=== PATIENT | female | born 1990 | race Caucasian/White ===

== ENCOUNTER → 2016-07-29 | Outpatient (CLI) | payer OTHER ==
[~2016-07-29] VITALS: Ht 162.6 cm; Wt 116.3 kg
[~2016-07-29] MED LIST: D5LR 1,000 ML IV SCH; DimenhyDRINATE 50 MG in LR 1,000 ML IV SCH; FERR324T4 PO; ONDANSETRON 4mg/2ml INJECTION IV ONE; ONDANSETRON 4mg/2ml INJECTION IV PRN; prenatal vit
[2016-07-29 11:30] VITALS: BP 126/68; PULSE 91; RESP 20; TEMP 98.8; O2SAT 97
[2016-07-29 11:42] VITALS: Ht 162.6 cm; Wt 116.3 kg
--- NOTE | 2016-07-29 11:43 | NUR ---
nausea Patient is dry-heaving upon admission. Zofran 4mg iv push given over 2minutes.
[2016-07-29 11:52] LABS: EOSINOPHILS % (AUTO) 0.2 % (0-4); HCT - HEMATOCRIT 32.5 % (36-46); HGB - HEMOGLOBIN 10.3 GM/DL (12-16); IMMATURE GRANULOCYTE # (AUTO) 0.03 T/MM3 (0.00-0.03); IMMATURE GRANULOCYTE % (AUTO) 0.3 % (0.0-0.5); LYMPHOCYTES # (AUTO) 1.4 T/MM3 (1-4.8); MEAN CORPUSCULAR HGB 24.4 UUG (26-34); MEAN CORPUSCULAR HGB CONC(MCHC 31.7 GM/DL (31-37); MEAN PLATELET VOLUME 9.7 UM3 (9.4-12.4); MONOCYTES # (AUTO) 0.3 T/MM3 (0-0.8); MONOCYTES % (AUTO) 2.7 % (0-9.0); NEUTROPHILS #(AUTO)-ABSOLUTE 7.8 T/MM3 (1.8-7.7); NEUTROPHILS % (AUTO) 81.8 % (33-66); RED BLOOD COUNT 4.22 M/MM3 (4.00-5.20); WBC - WHITE BLOOD COUNT 9.5 T/MM3 (4.5-11.0)
[2016-07-29 11:56] LABS: ALBUMIN 3.1 G/DL (3.5-5.0); ALKALINE PHOSPHATASE 86 U/L (38-126); ALT (SGPT) 43 U/L (9-52); ANION GAP 9 MEQ/L (5-15); AST (SGOT) 32 U/L (14-36); BUN/CREATININE RATIO 16 RATIO (6-26); CALCIUM 8.2 MG/DL (8.4-10.2); CHLORIDE 107 MEQ/L (98-107); CO2 - CARBON DIOXIDE 23 MEQ/L (22-30); CREATININE 0.5 MG/DL (0.7-1.2); GLOMERULAR FILTRATION RATE 148; GLUCOSE 91 MG/DL (65-110); POTASSIUM 3.7 MEQ/L (3.6-5); SODIUM 139 MEQ/L (134-144); TOTAL PROTEIN 6.2 G/DL (6.3-8.2)
--- NOTE | 2016-07-29 13:00 | NUR ---
STATUS PATIENT DENIES ANY NAUSEA SINCE ZOFRAN GIVEN ON ADMISSION. SHE REPORTS HAVING AN APPETITE AND ORDERED LUNCH. ATE 100% AND DRANK [employer] SPOR[employer] DRINK.
--- NOTE | 2016-07-29 14:35 | NUR ---
REST PATIENT SLEEPING SINCE EATING LUNCH. TOLERATING IV FLUIDS WELL. WILL CALL DR. JOLLY WITH AN UPDATE WHEN FLUIDS IN.
--- NOTE | 2016-07-29 14:49 | NUR ---
notification Dr. Manning notified that pt states she feels much better. Denies nausea. Lab results reported. Order received to d/c to home.
== END ==
LOC: INF.THER 10:23
PROVIDERS: ATTEND Obstetrics & Gynecology
DX: O21.1 Hyperemesis gravidarum with metabolic disturbance (principal)
CPT/HCPCS: 36415; 80053; 85025; 96361; 96365; 96375; J1240; J2405; J7120; J7121

== ENCOUNTER 2016-10-07 05:37 | Inpatient (IN) ==
[2016-10-07] MEDS ORDERED: CEFAZOLIN PREMIX (MC ONLY) 2 GM/50 ML BAG IV ONE (06:09)
[2016-10-07] MEDS ORDERED: NOZIN NASAL SWAB NAS ONE (06:09)
[2016-10-07] MEDS ORDERED: CEFAZOLIN 1 G in NS 100 ML IV ONE (06:09)
[2016-10-07] MEDS ORDERED: FAMOTIDINE PREMIX 20 MG/50 ML BAG IV ONE (06:09)
[2016-10-07] MEDS ORDERED: CITRIC ACID/SODIUM CITRATE 30ml PO ONE (06:09)
[2016-10-07] MEDS ORDERED: LR 1,000 ML IV SCH (06:15)
--- NOTE | 2016-10-07 06:52 | Anesthesia Preoperative Report ---
Anesthesia Epidural/Spinal Rec - Date and Time Date: 10/07/16 Preoperative Diagnosis: Previous Procedure: Plan: Spinal - Vital Signs NPO since: Midnight /Para: G: P: - Medictaions & Allergies Inpatient Medications: Current Medications Citric Acid/Sodium Citrate (Oracit) 30 ml PO PREOP ONE Stop: 10/07/16 06:10 Cefazolin Sodium/Dextrose (Kefzol Premix (Mc Only)) 2 gm in 50 mls @ 100 mls/ hr IV PREOP ONE Stop: 10/07/16 06:38 Famotidine/Sodium Chloride (Pepcid Premix) 20 mg in 50 mls @ 100 mls/hr IV PREOP ONE Stop: 10/07/16 06:38 Last Admin: 10/07/16 06:30 Dose: 100 mls/hr Cefazolin Sodium 1 g/ Sodium (Chloride) 100 mls @ 200 mls/hr IV PREOP ONE Stop: 10/07/16 06:38 Lactated Ringer's (Lactated Ringers) 1,000 mls @ 0 mls/hr IV .Q0M LEIF PRN Reason: As Directed Isopropyl Alcohol (Nozin Nasal Swab) 3 each TAMELA PREOP ONE Stop: 10/07/16 06:10 Isopropyl Alcohol (Nozin Nasal Swab) 1 each TAMELA 0600,1400,2200 [facility] Allergies/Adverse Reactions: Allergies Allergy/AdvReac Type Severity Reaction Status Date / Time Sulfa (Sulfonamide Allergy Intermediate HIVES Verified 07/29/16 11:21 Antibiotics) - Home Medications Home Medications: Home Medications Medication Instructions Recorded Confirmed Type Ferrous Sulfate 1 tab PO WB #0 tab 07/29/16 10/06/16 History Vits #90/Iron Fum/FA 1 each PO BID 10/06/16 10/06/16 History [ Formula Tablet] - Medical History Respiratory: Reports: Other (Recent Cough) - Surgical History Reproductive Surgery/Treatment: Reports: Section Anesthesia Reactions: None Hx Family Anesthesia Reaction: No History of Motion Sickness: No - Social History Smoking Status: Former smoker Second Hand Exposure: No Time spent discussing smoking cessation with patient: 3 to 10 minutes Substance Use Type: does not use Alcohol Intake Frequency: does not drink Hx Chewing Tobacco Use: No - Pertinent Findings Lab Data: CBC and BMP 10/07/16 06:34 EKG Rhythm: Normal Sinus Rhythm - Physical Exam Respiratory Exam: lungs clear Cardiovascular Exam: regular rate and rhythm - Airway Assessment Mallampati Score: II TMD: 2 Fingerbreadths Neck Extension: good Overall Assessment: may be difficult intubation - ASA ASA Score: 2 - Discussion Discussion: Discussed risks/options/alternatives of anesthesia and questions answered. Patient consents. Nursing pain assessment noted. Anesthesia Discussion: spouse Attestation Statement: Prior to the delivery of any anesthetic medication, I examined the patient, developed the plan, obtained the patient's consent and discussed the risk and benefits of the procedure with the patient/guardian.
[2016-10-07] MEDS ORDERED: SALINE FLUSH 10ml SYRINGE ONE ×2 (06:59→08:06)
[2016-10-07] MEDS ORDERED: FentaNYL 100 MCG/2 ML INJECTION ONE (06:59)
[2016-10-07] MEDS ORDERED: PHENYLEPHRINE INJ 10 MG/ML VIAL ONE (06:59)
[2016-10-07] MEDS ORDERED: MORPHINE SULFATE PF 5mg/10ml INJ (Duramorph) ONE (06:59)
[2016-10-07] MEDS ORDERED: EPHEDRINE 50mg/ml INJECTION ONE (07:31)
[2016-10-07] MEDS ORDERED: GLYCOPYRROLATE 0.4 MG/2 ML INJECTION ONE (07:34)
[2016-10-07] MEDS ORDERED: NALOXONE 2 MG/2 ML INJECTION PFS IVP PRN (08:46)
[2016-10-07] MEDS ORDERED: DiphenhydrAMINE 50 MG/ML INJECTION IVP PRN (08:46)
[2016-10-07] MEDS ORDERED: METOCLOPRAMIDE 10mg/2ml INJECTION IVP PRN (08:46)
[2016-10-07] MEDS ORDERED: NALBUPHINE 10 MG/ML INJECTION IVP PRN (08:46)
[2016-10-07] MEDS ORDERED: ONDANSETRON 4 MG/2 ML INJECTION IVP PRN (08:46)
[2016-10-07] MEDS ORDERED: PRENATAL VITAMIN TABLET PO SCH (09:00)
[2016-10-07] MEDS ORDERED: DOCUSATE CALCIUM 240 MG CAPSULE PO SCH (09:29)
[2016-10-07] MEDS ORDERED: SIMETHICONE 80 MG CHEWABLE TABLET PO PRN ×2 (09:29→11:18)
[2016-10-07] MEDS ORDERED: SALINE FLUSH 10ml SYRINGE IVF PRN (09:29)
[2016-10-07] MEDS ORDERED: HYDROCORTISONE 2.5% CREAM 30gm RECTALLY PRN ×2 (09:29→11:18)
[2016-10-07] MEDS ORDERED: ACETAMINOPHEN 500 MG TABLET PO PRN ×2 (09:29→11:18)
[2016-10-07] MEDS ORDERED: DiphenhydrAMINE 25 MG CAPSULE PO PRN ×2 (09:29→11:18)
[2016-10-07] MEDS ORDERED: D5LR 1,000 ML IV SCH (09:29)
[2016-10-07] MEDS: HYDROCODONE/APAP 5mg/325mg TABLET PO PRN ×3 (10:28→19:53)
[2016-10-07] MEDS ORDERED: OXYTOCIN DRIP 30 UNIT/500 ML ML IV SCH (11:30)
[2016-10-07] MEDS: IBUPROFEN 800 MG TABLET PO PRN ×2 (12:02→19:53)
[2016-10-07] MEDS: SIMETHICONE 80 MG CHEWABLE TABLET PO SCH ×5 (12:03→22:28)
--- NOTE | 2016-10-07 14:41 | Operative Note ---
DATE OF OPERATION 10/07/2016 PREOPERATIVE DIAGNOSES 1. Term , previous x 2. 2. Undesired fertility. POSTOPERATIVE DIAGNOSIS 1. Term , previous x 2, delivered. 2. Undesired fertility. PROCEDURE Repeat low transverse section, bilateral tubal ligation ( modified Keegan). SURGEON Loraine Manning MD [employer] INSPECTOR Hilary Tafoya MD ANESTHESIA Combo spinal epidural - Alverto Burgos CRNA EBL 700 ml. DESCRIPTION OF PROCEDURE Ms. Haque was brought to the OR and given regional analgesia to good effect. She was then placed on the OR table in a comfortable supine position. Hale catheter was placed to dependent drain. The abdomen was prepped and draped in the usual sterile fashion. A Pfannenstiel skin incision was made through the patient's prior lower scar of the two that she has. This was carried down to fascia. Fascia was incised transversely. Fascia was then tented up. This was bluntly and sharply dissected free of rectus muscles. Rectus muscles were bluntly divided. Peritoneum was tented up and sharply entered, then extended vertically. The bladder blade was inserted. Vesicouterine fold of peritoneum was tented up and incised transversely and a bladder flap bluntly created. The bladder blade was then reinserted to protect the bladder. A low transverse uterine incision was made with a sharp knife. There was copious clear amniotic fluid. A loose nuchal cord x 1 was reduced and baby's head was delivered with some difficulty just due to size of head and lack of stretch in the tissue. However, baby was bulb suctioned on the abdomen, cord was doubly clamped and cut and the baby was given to the pediatric team for care. This is a liveborn female with Apgars of 7//9, weighing 7 pounds, 9.8 ounces. The placenta was then expressed intact. The uterus was exteriorized and myometrium swept clear of membranes. The placenta was noted to be normal in configuration with a normal-appearing three-vessel cord. We then reapproximated the myometrium with a running locking O Monocryl. There were two small areas that still bled. These was secured with [id number] sutures in the midline of the O Monocryl. There was also an area on the serosa higher at the corpus anteriorly that that was not easily controlled with Bovie electrocautery, so it was secured with two [id number] sutures of 3-0 chromic. We then turned our attention to the tubal ligation. The right fallopian tube was visualized to its fimbria. It was grasped at its midpoint. A large section of tube was isolated with a simple ligature of 2-0 chromic. The mesosalpinx was pierced with a clamp and two simple ligatures of 2-0 silk were used to ligate either side of the tube above the prior to ligature. The isolated section of tube was then excised including the majority of the fimbria. We carefully watch the stumps. These were hemostatic and we turned our attention to left side. The left fallopian tube was then ligated in the exact same fashion as that on the right. Again hemostasis was under good control. We reinspected the anterior myometrial incision. It remained hemostatic. We reinspected stumps. They remained hemostatic. We returned the uterus, tubes and ovaries to the abdominal cavity after one more inspection, making sure hemostasis was under good control. We continued our closure. Peritoneum was reapproximated with a running nonlocking 2-0 Vicryl. Fascia was reapproximated with a running nonlocking 0 Vicryl. Skin edges were reapproximated with a subcuticular style 3 -0 undyed Vicryl. The wound was dressed with Steri-Strips and sterile dressings. Counts were correct postoperatively x 2. The urine remained clear and free flowing throughout the procedure. Ms. Haque was then transferred to recovery in stable condition. YANA
[2016-10-07] MEDS: NOZIN NASAL SWAB NAS SCH ×2 (15:34→22:28)
--- NOTE | 2016-10-07 16:40 | Anesthesia Postoperative Note ---
- Date and Time Date: 10/07/16 Time: 16:39 - Status Patient Participated in Evaluation: Patient Participated in Person Vital Signs: Temp Pulse Resp BP Pulse Ox 97.8 F 68 20 116/53 100 10/07/16 15:22 10/07/16 15:22 10/07/16 15:22 10/07/16 15:22 10/07/16 15:22 Respiratory Function: Airway Patent EKG Rhythm: Normal Sinus Rhythm Mental Status: Alert and Oriented Pain Intensity: 3 Hydration: Taking PO Fluids Complications During Recover: None Apparent - Follow-Up Instructions Instructions: Per Surgeon
[2016-10-08] MEDS: HYDROCODONE/APAP 5mg/325mg TABLET PO PRN ×3 (04:50→14:16)
[2016-10-08] MEDS: IBUPROFEN 800 MG TABLET PO PRN ×2 (04:51→16:22)
[2016-10-08] MEDS: DOCUSATE CALCIUM 240 MG CAPSULE PO SCH (09:16)
[2016-10-08] MEDS: FERROUS SULFATE 324 MG TABLET PO SCH (09:17)
[2016-10-08] MEDS: SIMETHICONE 80 MG CHEWABLE TABLET PO SCH ×5 (10:18→22:40)
--- NOTE | 2016-10-08 12:10 | OB/GYN Progress Note ---
OB-PP Progress Note - General PPD1 POD:: POD1 Group B Streptococcal Result: Positive Blood Type: O (-) negative Rubella OB HPI: immune - Subjective Date: 10/08/16 Lochia: Minimal Pain: contolled Voiding: voiding Nausea or Vomiting Present: No - Objective Vital Signs: Last Vital Signs Temp 99.1 F 10/08/16 09:10 Pulse 70 10/08/16 09:10 Resp 18 10/08/16 09:10 BP 124/61 10/08/16 09:10 Pulse Ox 97 10/08/16 09:10 General: alert and oriented Abdomen: non-tender Incision: normal, dry, intact Extremities: non-tender Side: bilateral Site: ankle Edema Degree: 1+ Laboratory: 10/07/16 15:04 - Assessment Assessment: , Repeat C/S, Tubal Ligation - Plan Plan: routine care Expected date of discharge: 10/09/16
[2016-10-08] MEDS ORDERED: BENZONATATE 200 MG CAPSULE PO PRN (17:57)
[2016-10-08] MEDS: HYDROCODONE/APAP 7.5 MG/325 MG TABLET PO PRN ×2 (18:18→22:40)
[2016-10-09] MEDS: IBUPROFEN 800 MG TABLET PO PRN ×2 (00:27→09:54)
[2016-10-09] MEDS: HYDROCODONE/APAP 7.5 MG/325 MG TABLET PO PRN ×2 (05:10→09:55)
[2016-10-09] MEDS: FERROUS SULFATE 324 MG TABLET PO SCH (09:54)
[2016-10-09] MEDS: DOCUSATE CALCIUM 240 MG CAPSULE PO SCH (09:54)
[2016-10-09] MEDS: SIMETHICONE 80 MG CHEWABLE TABLET PO SCH (09:55)
--- NOTE | 2016-10-09 11:29 | Discharge Summary ---
Discharge Plan - Med Rec/Dispo Prescriptions: New Benzonatate [Tessalon Perles] 200 mg PO TID PRN #21 cap PRN Reason: Cough Docusate Calcium [Surfak] 240 mg PO DAILY #30 cap Ferrous Sulfate [Feosol] 324 mg PO WB #30 Ibuprofen [Motrin] 800 mg PO Q8H PRN #40 PRN Reason: Pain Hydrocodone/APAP 7.5/325 [Saxton 7.5/325] 1 - 2 tab PO Q4H PRN #30 PRN Reason: Pain Continue Vits #90/Iron Fum/FA [ Formula Tablet] 1 each PO BID No Action Ferrous Sulfate 1 tab PO WB #0 tab Cefazolin 500 mg PO TID - Disposition 01 Discharged Home, Self-Care
== END 2016-10-09 12:50 | disposition home or self-care (01) | DRG 766 ==
LOC: MC 05:37
PROVIDERS: ADMIT Obstetrics & Gynecology; ATTEND Obstetrics & Gynecology